=== PATIENT | male | born 1995 | race African-American/Black ===

== ENCOUNTER 2024-03-09 22:04 | Emergency (ER) | payer MEDICAID ==
[~2024-03-09] VITALS: Ht 167.6 cm; Wt 68.0 kg
[2024-03-09 22:12] VITALS: O2SAT 100
[2024-03-09 22:13] VITALS: BP 119/70; PULSE 61; RESP 18; TEMP 98; O2SAT 99
[2024-03-09 22:53] LABS: CLARITY URINE CLEAR (CLEAR); COLOR URINE YELLOW (YELLOW); GLUCOSE URINE NEGATIVE (NEGATIVE); KETONES URINE NEGATIVE (NEGATIVE); LEUKOCYTE ESTERASE URINE NEGATIVE (NEGATIVE); NITRITE URINE NEGATIVE (NEGATIVE); OCCULT BLOOD URINE NEGATIVE (NEGATIVE); PH URINE 6.5 (4.5-8.0); PROTEIN URINE NEGATIVE (NEGATIVE); SPECIFIC GRAVITY URINE 1.031 (1.005-1.030)
[2024-03-09] MEDS ORDERED: KETO15CR2 TP (23:14)
[2024-03-12 19:09] LABS: NEISSERIA GONORRHOEAE NAA Negative (Negative)
[2024-03-13 06:13] LABS: CHLAMYDIA TRACHOMATIS NAA Positive (Negative)
== END 2024-03-09 23:27 | disposition home or self-care (01) ==
LOC: ER 22:04
DX: A64 Unspecified sexually transmitted disease (principal); N48.1 Balanitis; F12.10 Cannabis abuse, uncomplicated
CPT/HCPCS: 81003; 87491; 87591; 99283